=== PATIENT | female | born 1965 | race Caucasian/White ===

== ENCOUNTER 2023-12-26 16:46 | Emergency (ER) | payer OTHER | END 2023-12-26 20:57 | disposition home or self-care (01) | LOC: JP.ED 16:46 | DX: R19.00 Intra-abdominal and pelvic swelling, mass and lump, unspecified site (principal); Z79.899 Other long term (current) drug therapy; R10.11 Right upper quadrant pain; K80.20 Calculus of gallbladder without cholecystitis without obstruction; J90 Pleural effusion, not elsewhere classified; J98.11 Atelectasis | CPT/HCPCS: 74177; 99283; J3490; Q9967; 99284 ==

== ENCOUNTER 2024-01-16 16:21 | Emergency (ER) | payer OTHER ==
[2024-01-16 18:59] LABS: APPEARANCE,URINE CLEAR (CLEAR); BILIRUBIN,URINE NEGATIVE (NEGATIVE); COLOR,URINE YELLOW (YELLOW); GLUCOSE,URINE NEGATIVE (NEGATIVE); KETONES,URINE NEGATIVE (NEGATIVE); LEUKOCYTE ESTERASE,URINE TRACE (NEGATIVE); NITRITE,URINE NEGATIVE (NEGATIVE); OCCULT BLOOD,URINE SMALL (NEGATIVE); PROTEIN,URINE NEGATIVE (NEGATIVE); UROBILINOGEN,URINE 0.2 EU/dL (0.2-1.0)
[2024-01-16] MEDS: Sodium Chloride 0.9% 1,000 ML IV ONE (19:01)
[2024-01-16] MEDS: Morphine 2 MG/ML SYRINGE IVPUSH ONE (19:03)
[2024-01-16 19:04] LABS: BASOPHILS ABSOLUTE AUTO 0.01 K/uL (0.00-0.10); BASOPHILS PERCENT AUTO 0.2 % (0.1-1.3); EOSINOPHILS ABSOLUTE AUTO 0.08 K/uL (0.00-0.40); EOSINOPHILS PERCENT AUTO 1.7 % (0.0-5.4); HEMATOCRIT 33.4 % (34.3-46.0); HEMOGLOBIN 10.1 g/dL (11.2-15.5); IMMATURE GRAN ABSOLUTE AUTO 0.01 K/uL (0.00-0.23); IMMATURE GRAN PERCENT AUTO 0.2 % (0.0-0.7); LYMPHOCYTES ABSOLUTE AUTO 0.61 K/uL (0.8-3.3); LYMPHOCYTES PERCENT AUTO 12.7 % (11.4-47.7); MEAN CORPUSCULAR HEMOGLOBIN 23.4 pg (31.6-35.5); MEAN CORPUSCULAR HGB CONC 30.2 g/dL (31.6-35.5); MEAN CORPUSCULAR VOLUME 77.3 fL (81.4-99.0); MONOCYTES ABSOLUTE AUTO 0.11 K/uL (0.20-0.90); MONOCYTES PERCENT AUTO 2.3 % (3.3-12.6); NEUTROPHILS ABSOLUTE AUTO 3.97 K/uL (1.0-7.6); NEUTROPHILS PERCENT AUTO 82.9 % (40.0-78.1); PLATELET COUNT,PLT 337 K/uL (130-375); RED BLOOD CELL COUNT 4.32 M/uL (3.77-5.24); WHITE BLOOD CELL COUNT,WBC 4.8 K/uL (3.2-11.0)
[2024-01-16 19:05] LABS: AMORPHOUS SEDIMENT,URINE NOT SEEN; BACTERIA,URINE MANY; EPITHELIAL CELLS,URINE RARE; MUCUS,URINE RARE; RBC,URINE 0-5 (0-5); WBC,URINE 0-5 (0-5)
[2024-01-16 19:25] LABS: A/G RATIO 0.6 (1.2-2.2); ALANINE AMINOTRANSFERASE,ALT 18 U/L (12-78); ALBUMIN 2.4 g/dL (3.4-5.0); ALKALINE PHOSPHATASE 61 U/L (46-116); ASPARTATE AMNIOTRANSFERASE,AST 18 U/L (15-37); BILIRUBIN TOTAL 0.2 mg/dL (0.2-1.0); BLOOD UREA NITROGEN,BUN 14 mg/dL (7-18); CALCIUM 9.3 mg/dL (8.5-10.1); CARBON DIOXIDE,CO2 31 mmol/L (21-32); CHLORIDE,CL 102 mmol/L (100-108); CREATININE 0.7 mg/dL (0.6-1.0); EST CRCL DRUG DOSING (CG) 107.45 mL/min; ESTIMATED GFR 100 mL/min (>60); GLUCOSE RANDOM 105 mg/dL (74-106); POTASSIUM,K 5.2 mmol/L (3.6-5.2); PROTEIN TOTAL,TP 6.7 g/dL (6.4-8.2); SODIUM,NA 137 mmol/L (140-148)
[2024-01-16 19:26] LABS: ANION GAP 9.2 mmol/L (5.0-14.0)
[2024-01-16] MEDS: Sodium Chloride 0.9% 60 ML IV SCH (21:30)
[2024-01-16] MEDS: Iopamidol 612 MG/ML 100 ML Bottle IV SCH (21:30)
[2024-01-16] MEDS: HYDROmorphone 0.5 MG/0.5 ML Syringe IVPUSH ONE (23:00)
[2024-01-16] MEDS: HYDROmorphone 0.5 MG/0.5 ML Syringe ONE (23:01)
[2024-01-16] MEDS: Ketorolac 30 MG/ML SDV IVPUSH ONE (23:45)
[2024-01-16] MEDS: Ciprofloxacin in D5W 400 MG in Premix Bag 1 BAG IV ONE (23:55)
== END 2024-01-17 01:31 | disposition home or self-care (01) ==
LOC: JP.ED 16:21
DX: C56.2 Malignant neoplasm of left ovary (principal); R18.0 Malignant ascites; K21.9 Gastro-esophageal reflux disease without esophagitis; E66.9 Obesity, unspecified; Z87.19 Personal history of other diseases of the digestive system; Z79.899 Other long term (current) drug therapy; Z68.36 Body mass index [BMI] 36.0-36.9, adult
CPT/HCPCS: 36415; 74177; 80053; 81001; 83605; 85025; 96361; 96365; 96375; 99284; 99285; J0744; J1171; J1885; J2270; J3490; J7030; Q9967

== ENCOUNTER 2024-04-26 06:17 | Day surgery (SDC) | payer OTHER ==
[2024-04-26] MEDS ORDERED: Midazolam 1 MG/ML 2 ML SDV ONE (06:44)
[2024-04-26] MEDS ORDERED: fentaNYL 50 MCG/ML SDV ONE (06:44)
[2024-04-26] MEDS ORDERED: Propofol 200 MG/20 ML SDV ONE (06:44)
[2024-04-26] MEDS: Lactated Ringers 1,000 ML IV SCH (07:24)
== END 2024-04-26 09:46 | disposition home or self-care (01) ==
LOC: JP.SDS 06:17
PROVIDERS: ATTEND Surgery
DX: Z12.11 Encounter for screening for malignant neoplasm of colon (principal); Z88.8 Allergy status to other drugs, medicaments and biological substances
CPT/HCPCS: 00811-QZ; J1642; J2250; J2704; J3010; J7120